=== PATIENT | female | born 2000 | race Caucasian/White ===

== ENCOUNTER 2018-09-09 08:59 | Emergency (ER) | payer OTHER ==
[~2018-09-09] VITALS: Ht 160 cm; Wt 63.5 kg
[2018-09-09] MEDS ORDERED: PROZAC40 MG (09:20)
== END 2018-09-09 11:41 | disposition home or self-care (01) ==
LOC: ER 08:59
DX: H66.92 Otitis media, unspecified, left ear (principal)